=== PATIENT | female | born 2000 | race African-American/Black ===

== ENCOUNTER 2022-01-26 07:06 | Inpatient (IN) | payer OTHER ==
[~2022-01-26] VITALS: Ht 152.4 cm; Wt 78.0 kg
[~2022-01-26 07:06] MED LIST: NO KNOWN ALLERGIES
[2022-01-26] MEDS ORDERED: NALOXONE HCL 0.4 MG/ML 1ML VIAL IM PRN (07:45)
[2022-01-26] MEDS ORDERED: BUTORPHANOL TARTRATE 2 MG/ML VIAL IV PRN ×2 (07:45→12:45)
[2022-01-26] MEDS ORDERED: MISOPROSTOL 100MCG TABLET VG SCH (07:45)
[2022-01-26] MEDS ORDERED: METHYLERGONOVINE MALEATE 0.2 MG/ML IM PRN (07:45)
[2022-01-26] MEDS ORDERED: RHO(D) IMMUNE GLOBULIN 300 MCG/SYR IM PRN ×2 (07:45→13:15)
[2022-01-26] MEDS ORDERED: CARBOPROST TROMETHAMINE 250 MCG/ML AMPUL IM PRN (07:45)
[2022-01-26] MEDS ORDERED: OXYTOCIN 30 UNITS/500ML NS PMX 500 ML IV SCH ×2 (07:45→13:15)
[2022-01-26] MEDS: LACTATED RINGERS 1,000 ML IV SCH ×2 (08:47→19:38)
[2022-01-26] MEDS ORDERED: MISOPROSTOL 100MCG TABLET VG PRN (09:00)
[2022-01-26] MEDS ORDERED: ONDANSETRON HCL 4MG/2ML INJ ONE (09:37)
[2022-01-26] MEDS ORDERED: FENTANYL CITRATE/PF 50MCG/ML 2ML VIAL ONE (09:37)
[2022-01-26] MEDS ORDERED: EPHEDRINE SULFATE 50MG/ML VIAL ONE (09:37)
[2022-01-26] MEDS ORDERED: PHENYLEPHRINE HCL 10 MG/ML 1ML (IV VIAL) IV ONE (09:37)
[2022-01-26] MEDS ORDERED: OXYTOCIN 10 UNITS/ML 1ML ONE ×2 (09:37→12:54)
[2022-01-26] MEDS ORDERED: CLINDAMYCIN 900 MG PREMIX 50 ML IV ONE (09:37)
[2022-01-26] MEDS ORDERED: MORPHINE SULFATE/PF 1MG/ML 10ML AMP ONE (09:37)
[2022-01-26 09:47] LABS: BASOPHILS % 0.2 % (0.0-2.0); EOSINOPHILS % 1.1 % (0.0-5.0); HEMATOCRIT. 37.8 % (36.0-48.0); HEMOGLOBIN. 12.9 g/dL (12.0-16.0); LYMPHOCYTES % 17.9 % (20.0-50.0); MEAN CORPUSCULAR HEMOGLOBIN 32.9 pg (28.0-32.0); MEAN CORPUSCULAR VOLUME 96.6 fL (81.0-99.0); MEAN PLATELET VOLUME 11.9 fl (7.4-10.4); MONOCYTES % 5.9 % (2.0-8.0); NEUTROPHILS % 74.9 % (40.0-76.0); PLATELET 109 x1000/uL (130-400); RED BLOOD CELL COUNT 3.91 mill/uL (4.2-5.4)
[2022-01-26 09:48] LABS: CLARITY URINE CLEAR (CLEAR); COLOR URINE YELLOW (YELLOW); KETONES URINE NEGATIVE (NEGATIVE); LEUKOCYTE ESTERASE URINE 1+ (NEGATIVE); NITRITE URINE NEGATIVE (NEGATIVE); OCCULT BLOOD URINE NEGATIVE (NEGATIVE); PROTEIN URINE NEGATIVE (NEGATIVE); UROBILINOGEN URINE 0.2 E.U./dL (0.2-1.0)
[2022-01-26 09:53] LABS: INR 0.9; PARTIAL THROMBOPLASTIN TIME 30.3 sec (23.4-31.0); PROTHROMBIN TIME 9.9 sec (9.6-11.0)
[2022-01-26 10:09] LABS: CHLORIDE 107 mEq/L (98-107)
[2022-01-26 10:25] LABS: *AMPHETAMINES SCREEN URINE NEGATIVE (NEGATIVE); *BARBITURATES SCREEN URINE NEGATIVE (NEGATIVE); *BENZODIAZEPINES SCREEN URINE NEGATIVE (NEGATIVE); *COCAINE SCREEN URINE NEGATIVE (NEGATIVE); CANNABINOID URINE SCREEN NEGATIVE (NEGATIVE); METHADONE URINE SCREEN NEGATIVE (NEGATIVE); OPIATES URINE SCREEN NEGATIVE (NEGATIVE); PHENCYCLIDINE URINE SCREEN NEGATIVE (NEGATIVE)
[2022-01-26] MEDS ORDERED: DIPHENHYDRAMINE 50MG/ML VIAL ONE (12:21)
[2022-01-26] MEDS ORDERED: KETOROLAC 60MG/2ML VIAL IM ONE (12:29)
[2022-01-26] MEDS ORDERED: DIPHENHYDRAMINE 50MG/ML VIAL IV PRN (12:45)
[2022-01-26] MEDS ORDERED: NALOXONE HCL 0.4 MG/ML 1ML VIAL IV PRN (12:45)
[2022-01-26] MEDS ORDERED: HYDROCODONE/ACETAMINOPHEN 5/325MG TABLET PO PRN (13:15)
[2022-01-26] MEDS ORDERED: ONDANSETRON HCL 4MG/2ML INJ IV PRN (13:15)
[2022-01-26] MEDS ORDERED: LANOLIN OINT 7GM TUBE TOP PRN (13:15)
[2022-01-26] MEDS ORDERED: IBUPROFEN 400MG TABLET PO PRN (13:15)
[2022-01-26] MEDS ORDERED: NALOXONE HCL 0.4MG/ML VIAL IV PRN (13:30)
[2022-01-26 15:35] VITALS: BP 104/61
[2022-01-26 16:20] VITALS: BP 102/41
[2022-01-26] MEDS: KETOROLAC 30MG/ML VIAL IV SCH (18:27)
[2022-01-26 20:00] VITALS: BP 96/57
[2022-01-26] MEDS ORDERED: DIPHENHYDRAMINE 25MG CAPSULE PO PRN (21:00)
[2022-01-27 00:15] VITALS: BP 96/51
[2022-01-27] MEDS: KETOROLAC 30MG/ML VIAL IV SCH ×2 (00:17→05:04)
[2022-01-27] MEDS: LACTATED RINGERS 1,000 ML IV SCH (03:27)
[2022-01-27 03:45] VITALS: BP 96/58
[2022-01-27 06:37] LABS: HEMATOCRIT. 30.4 % (36.0-48.0); HEMOGLOBIN. 10.6 g/dL (12.0-16.0); MEAN CORPUSCULAR VOLUME 94.8 fL (81.0-99.0); MEAN PLATELET VOLUME 11.1 fl (7.4-10.4); PLATELET 99 x1000/uL (130-400); RED CELL DISTRIBUTION WIDTH 12.2 % (11.6-14.6)
[2022-01-27 08:00] VITALS: BP 93/40
[2022-01-27] MEDS: HYDROCODONE/ACETAMINOPHEN 5/325MG TABLET PO PRN ×3 (12:15→21:51)
[2022-01-27 16:30] VITALS: BP 113/65
[2022-01-27 16:40] LABS: PLATELET ESTIMATE DECREASED
[2022-01-27] MEDS: PRENATAL VIT/FE FUMARATE/FA TABLET PO SCH (16:45)
[2022-01-27] MEDS ORDERED: ACETAMINOPHEN 325MG TABLET PO PRN (18:00)
[2022-01-27 20:00] VITALS: BP 106/56
[2022-01-27] MEDS ORDERED: GENTAMICIN 120MG PREMIX 100 ML IV NR (20:00)
[2022-01-27 20:32] LABS: HEMATOCRIT. 35.8 % (36.0-48.0); MEAN CORPUSCULAR HEMOGLOBIN 32.7 pg (28.0-32.0); MEAN CORPUSCULAR VOLUME 97.2 fL (81.0-99.0); MEAN PLATELET VOLUME 11.3 fl (7.4-10.4); PLATELET 115 x1000/uL (130-400); RED BLOOD CELL COUNT 3.68 mill/uL (4.2-5.4); RED CELL DISTRIBUTION WIDTH 12.2 % (11.6-14.6)
[2022-01-27] MEDS: DOCUSATE SODIUM 100MG CAPSULE PO SCH (20:55)
[2022-01-27] MEDS: IBUPROFEN 800MG TABLET PO SCH (20:55)
[2022-01-27 22:15] LABS: CLARITY URINE CLEAR (CLEAR); COLOR URINE YELLOW (YELLOW); KETONES URINE NEGATIVE (NEGATIVE); LEUKOCYTE ESTERASE URINE TRACE (NEGATIVE); NITRITE URINE NEGATIVE (NEGATIVE); OCCULT BLOOD URINE 2+ (NEGATIVE); PROTEIN URINE NEGATIVE (NEGATIVE); SPECIFIC GRAVITY URINE 1.008 (1.005-1.030)
[2022-01-27] MEDS: AMPICILLIN 500 MG in SODIUM CHLORIDE 0.9% 50 ML IV SCH (22:44)
[2022-01-27 23:40] VITALS: BP 104/50
[2022-01-28 01:06] LABS: PLATELET ESTIMATE DECREASED
[2022-01-28] MEDS: HYDROCODONE/ACETAMINOPHEN 5/325MG TABLET PO PRN (03:24)
[2022-01-28 03:30] VITALS: BP 106/63
[2022-01-28] MEDS: AMPICILLIN 500 MG in SODIUM CHLORIDE 0.9% 50 ML IV SCH (04:01)
[2022-01-28] MEDS: GENTAMICIN 80MG PREMIX 100 ML IV SCH ×3 (05:16→20:00)
[2022-01-28] MEDS: IBUPROFEN 800MG TABLET PO SCH ×3 (05:50→22:44)
[2022-01-28 06:20] LABS: BASOPHILS % 0.2 % (0.0-2.0); EOSINOPHILS % 0.6 % (0.0-5.0); HEMATOCRIT. 31.7 % (36.0-48.0); HEMOGLOBIN. 10.8 g/dL (12.0-16.0); LYMPHOCYTES % 4.5 % (20.0-50.0); MEAN CORPUSCULAR HEMOGLOBIN 32.8 pg (28.0-32.0); MEAN CORPUSCULAR VOLUME 96.8 fL (81.0-99.0); MONOCYTES % 5.7 % (2.0-8.0); PLATELET 106 x1000/uL (130-400); RED BLOOD CELL COUNT 3.28 mill/uL (4.2-5.4); RED CELL DISTRIBUTION WIDTH 11.8 % (11.6-14.6)
[2022-01-28 07:30] VITALS: BP 105/60
[2022-01-28] MEDS: PRENATAL VIT/FE FUMARATE/FA TABLET PO SCH (08:15)
[2022-01-28] MEDS ORDERED: KETOROLAC 30MG/ML VIAL IV ONE (08:30)
[2022-01-28] MEDS: CLINDAMYCIN 900 MG PREMIX 50 ML IV SCH ×2 (10:09→17:36)
[2022-01-28] MEDS: OXYCODONE HCL/ACETAMINOPHEN 5/325MG TABLET PO SCH ×2 (12:13→18:32)
[2022-01-28 15:57] VITALS: BP 112/66
[2022-01-28 20:00] VITALS: BP 98/54
[2022-01-28] MEDS: DOCUSATE SODIUM 100MG CAPSULE PO SCH (20:00)
[2022-01-29] MEDS: OXYCODONE HCL/ACETAMINOPHEN 5/325MG TABLET PO SCH ×2 (01:06→06:56)
[2022-01-29] MEDS: CLINDAMYCIN 900 MG PREMIX 50 ML IV SCH (01:34)
[2022-01-29 04:00] VITALS: BP 102/52
[2022-01-29] MEDS: IBUPROFEN 800MG TABLET PO SCH (04:48)
[2022-01-29 07:40] VITALS: BP 95/45
[2022-01-29 07:50] LABS: BASOPHILS % 0.3 % (0.0-2.0); EOSINOPHILS % 1.8 % (0.0-5.0); HEMATOCRIT. 34.3 % (36.0-48.0); HEMOGLOBIN. 11.5 g/dL (12.0-16.0); LYMPHOCYTES % 14.2 % (20.0-50.0); MEAN CORPUSCULAR HEMOGLOBIN 32.5 pg (28.0-32.0); MEAN CORPUSCULAR VOLUME 96.7 fL (81.0-99.0); MEAN PLATELET VOLUME 11.5 fl (7.4-10.4); MONOCYTES % 4.8 % (2.0-8.0); NEUTROPHILS % 78.9 % (40.0-76.0); PLATELET 124 x1000/uL (130-400); RED BLOOD CELL COUNT 3.54 mill/uL (4.2-5.4); RED CELL DISTRIBUTION WIDTH 12.2 % (11.6-14.6)
[2022-01-29] MEDS: PRENATAL VIT/FE FUMARATE/FA TABLET PO SCH (08:26)
[2022-01-29 08:34] LABS: CHLORIDE 107 mEq/L (98-107)
[2022-01-29 11:58] LABS: GENTAMICIN RANDOM < 0.2 ug/mL
== END 2022-01-29 11:35 | disposition home or self-care (01) | DRG 540 ==
LOC: 8 EST LDRP 07:06 → OBSVTOIN 12:23 → 8EST 15:48
PROVIDERS: ADMIT Obstetrics & Gynecology; ATTEND Obstetrics & Gynecology
PROC: 10D00Z1 Extraction of Products of Conception, Low, Open Approach (ICD-10-PCS; principal; 2022-01-26)
PROC: 3E0234Z Introduction of Serum, Toxoid and Vaccine into Muscle, Percutaneous Approach (ICD-10-PCS; 2022-01-26)
DX: O34.211 Maternal care for low transverse scar from previous cesarean delivery (principal); J45.909 Unspecified asthma, uncomplicated; O99.52 Diseases of the respiratory system complicating childbirth; O99.02 Anemia complicating childbirth; O26.893 Other specified pregnancy related conditions, third trimester; Z20.822 Contact with and (suspected) exposure to COVID-19; Z3A.38 38 weeks gestation of pregnancy; Z37.0 Single live birth; Z67.41 Type O blood, Rh negative
CPT/HCPCS: 36415; 76805; 76818; 80048; 80053; 80170; 80305; 81003; 85025; 86592; 86703; 86762; 86850; 86886; 86900; 87070; 87340; 87426; 88307; 90384; G0378; J0290; J1200; J1580; J1885; J2274; J2370; J2405; J3010; J3490; J7120; A4315; J2590; J2791

== ENCOUNTER 2022-02-02 21:43 | Inpatient (IN) | payer OTHER ==
[~2022-02-02] VITALS: Ht 152.4 cm; Wt 72.6 kg
[2022-02-03] VITALS (7 sets, daily range): BP systolic 100–117; BP diastolic 56–68
[2022-02-03] MEDS ORDERED: MORPHINE SULFATE 4 MG/ML CPJ (NOT FOR IM USE) IV STA (01:59)
[2022-02-03] MEDS ORDERED: ONDANSETRON HCL 4MG/2ML INJ IV STA (01:59)
[2022-02-03] MEDS ORDERED: PIPERACILLIN/TAZ 3.375G PREMIX 50 ML IV ONE (02:00)
[2022-02-03] MEDS ORDERED: SODIUM CHLORIDE 0.9% 1,000 ML IV ONE ×2 (02:00)
[2022-02-03 03:08] LABS: HEMATOCRIT. 40.6 % (36.0-48.0); HEMOGLOBIN. 13.2 g/dL (12.0-16.0); MEAN CORPUSCULAR HEMOGLOBIN 31.2 pg (28.0-32.0); MEAN CORPUSCULAR VOLUME 96.3 fL (81.0-99.0); MEAN PLATELET VOLUME 10.7 fl (7.4-10.4); PLATELET 250 x1000/uL (130-400); RED BLOOD CELL COUNT 4.22 mill/uL (4.2-5.4); RED CELL DISTRIBUTION WIDTH 12.6 % (11.6-14.6)
[2022-02-03 03:15] LABS: CHLORIDE 104 mEq/L (98-107)
[2022-02-03 03:25] LABS: B-HCG QUANTITATIVE 29 mIU/mL (<3)
[2022-02-03 03:36] LABS: PLATELET ESTIMATE NORMAL
[2022-02-03] MEDS ORDERED: MORPHINE SULFATE 4 MG/ML CPJ (NOT FOR IM USE) IV NR (04:00)
[2022-02-03] MEDS ORDERED: ONDANSETRON HCL 4MG/2ML INJ IV NR (04:00)
[2022-02-03] MEDS ORDERED: IOHEXOL-300 100 ML BOTTLE ONE (04:49)
[2022-02-03] MEDS ORDERED: VANCOMYCIN 1G PREMIX 200 ML IV ONE (05:00)
[2022-02-03 05:50] LABS: CLARITY URINE TURBID (CLEAR); COLOR URINE ORANGE (YELLOW); KETONES URINE TRACE (NEGATIVE); LEUKOCYTE ESTERASE URINE 2+ (NEGATIVE); NITRITE URINE POSITIVE (NEGATIVE); OCCULT BLOOD URINE 3+ (NEGATIVE); PROTEIN URINE 3+ (NEGATIVE); SPECIFIC GRAVITY URINE 1.027 (1.005-1.030)
[2022-02-03] MEDS: HYDROCODONE/ACETAMINOPHEN 5/325MG TABLET PO PRN ×2 (12:13→19:31)
[2022-02-03] MEDS: DEXT 5%/0.45% NACL 1000ML 1,000 ML IV SCH ×2 (12:13→23:01)
[2022-02-03] MEDS ORDERED: PIPERACILLIN/TAZOBACTAM 3.375 G in DEXTROSE 5% WATER 50 ML IV SCH (13:00)
[2022-02-03] MEDS: CEFEPIME 2,000 MG in DEXT 5% WATER 100 ML IV SCH (18:06)
[2022-02-04] VITALS (10 sets, daily range): BP systolic 94–119; BP diastolic 44–83
[2022-02-04] MEDS ORDERED: VANCOMYCIN 750MG PREMIX 150 ML IV SCH
[2022-02-04] MEDS: HYDROCODONE/ACETAMINOPHEN 5/325MG TABLET PO PRN ×2 (00:23→05:41)
[2022-02-04] MEDS: CEFEPIME 2,000 MG in DEXT 5% WATER 100 ML IV SCH ×2 (05:18→17:26)
[2022-02-04 06:21] LABS: HEMATOCRIT. 32.8 % (36.0-48.0); MEAN CORPUSCULAR HEMOGLOBIN 31.9 pg (28.0-32.0); MEAN CORPUSCULAR VOLUME 95.3 fL (81.0-99.0); MEAN PLATELET VOLUME 10.7 fl (7.4-10.4); PLATELET 241 x1000/uL (130-400); RED BLOOD CELL COUNT 3.44 mill/uL (4.2-5.4); RED CELL DISTRIBUTION WIDTH 12.7 % (11.6-14.6)
[2022-02-04 08:29] LABS: CHLORIDE 100 mEq/L (98-107)
[2022-02-04] MEDS ORDERED: POTASSIUM CHLORIDE 20MEQ TABLET SR PO NR (09:00)
[2022-02-04] MEDS ORDERED: DOCUSATE SODIUM 100MG CAPSULE PO NR (11:00)
[2022-02-04 11:34] LABS: PLATELET ESTIMATE NORMAL
[2022-02-04] MEDS: VANCOMYCIN 750MG PREMIX 150 ML IV SCH (12:09)
[2022-02-04] MEDS: DEXT 5%/0.45% NACL 1000ML 1,000 ML IV SCH (12:12)
[2022-02-04] MEDS: KETOROLAC 30MG/ML VIAL IV PRN (12:33)
[2022-02-04] MEDS: DOCUSATE SODIUM 100MG CAPSULE PO SCH (17:26)
[2022-02-05] VITALS (9 sets, daily range): BP systolic 103–141; BP diastolic 58–81
[2022-02-05] MEDS: DEXT 5%/0.45% NACL 1000ML 1,000 ML IV SCH ×2 (02:00→20:24)
[2022-02-05] MEDS: CEFEPIME 2,000 MG in DEXT 5% WATER 100 ML IV SCH ×2 (04:17→18:19)
[2022-02-05] MEDS: KETOROLAC 30MG/ML VIAL IV PRN ×3 (04:18→15:53)
[2022-02-05] MEDS: VANCOMYCIN 750MG PREMIX 150 ML IV SCH (04:18)
[2022-02-05 05:41] LABS: HEMATOCRIT. 31.6 % (36.0-48.0); HEMOGLOBIN. 10.4 g/dL (12.0-16.0); MEAN CORPUSCULAR HEMOGLOBIN 31.5 pg (28.0-32.0); MEAN CORPUSCULAR VOLUME 95.5 fL (81.0-99.0); MEAN PLATELET VOLUME 10.1 fl (7.4-10.4); PLATELET 259 x1000/uL (130-400); RED CELL DISTRIBUTION WIDTH 12.6 % (11.6-14.6)
[2022-02-05 10:11] LABS: CHLORIDE 105 mEq/L (98-107)
[2022-02-05] MEDS: DOCUSATE SODIUM 100MG CAPSULE PO SCH ×2 (10:25→18:19)
[2022-02-05] MEDS: VANCOMYCIN 1G PREMIX 200 ML IV SCH ×2 (13:19→21:26)
[2022-02-05 18:47] LABS: PLATELET ESTIMATE NORMAL
[2022-02-05] MEDS ORDERED: POTASSIUM CHLORIDE 20MEQ TABLET SR PO SCH (19:30)
[2022-02-06] VITALS (10 sets, daily range): BP systolic 96–125; BP diastolic 57–78
[2022-02-06] MEDS: KETOROLAC 30MG/ML VIAL IV PRN ×3 (00:07→17:21)
[2022-02-06 03:35] LABS: CHLORIDE 108 mEq/L (98-107)
[2022-02-06 03:57] LABS: HEMATOCRIT. 30.7 % (36.0-48.0); HEMOGLOBIN. 10.2 g/dL (12.0-16.0); MEAN CORPUSCULAR HEMOGLOBIN 31.8 pg (28.0-32.0); MEAN CORPUSCULAR VOLUME 95.5 fL (81.0-99.0); MEAN PLATELET VOLUME 10.2 fl (7.4-10.4); PLATELET 273 x1000/uL (130-400); RED BLOOD CELL COUNT 3.22 mill/uL (4.2-5.4); RED CELL DISTRIBUTION WIDTH 12.4 % (11.6-14.6)
[2022-02-06] MEDS: CEFEPIME 2,000 MG in DEXT 5% WATER 100 ML IV SCH ×2 (04:35→17:03)
[2022-02-06 06:01] LABS: PLATELET ESTIMATE DECREASED
[2022-02-06] MEDS ORDERED: POTASSIUM CHLORIDE 20MEQ TABLET SR PO NR (08:30)
[2022-02-06] MEDS: DOCUSATE SODIUM 100MG CAPSULE PO SCH ×2 (09:00→17:00)
[2022-02-06] MEDS ORDERED: AZITHROMYCIN 500 MG TABLET PO NR (10:30)
[2022-02-06] MEDS: DEXT 5%/0.45% NACL 1000ML 1,000 ML IV SCH (11:08)
[2022-02-07] VITALS: BP 98/60
[2022-02-07] MEDS: ONDANSETRON HCL 4MG/2ML INJ IV PRN ×4 (03:27→20:26)
[2022-02-07] MEDS: KETOROLAC 30MG/ML VIAL IV PRN (03:34)
[2022-02-07 04:00] VITALS: BP 124/65
[2022-02-07] MEDS: CEFEPIME 2,000 MG in DEXT 5% WATER 100 ML IV SCH ×2 (05:15→17:38)
[2022-02-07 07:26] LABS: HEMATOCRIT. 34.4 % (36.0-48.0); HEMOGLOBIN. 11.2 g/dL (12.0-16.0); MEAN CORPUSCULAR HEMOGLOBIN 31.4 pg (28.0-32.0); MEAN CORPUSCULAR VOLUME 95.9 fL (81.0-99.0); MEAN PLATELET VOLUME 10.7 fl (7.4-10.4); PLATELET 356 x1000/uL (130-400); RED BLOOD CELL COUNT 3.58 mill/uL (4.2-5.4); RED CELL DISTRIBUTION WIDTH 12.7 % (11.6-14.6)
[2022-02-07 08:00] VITALS: BP 99/58
[2022-02-07] MEDS: AZITHROMYCIN 500 MG TABLET PO SCH (08:50)
[2022-02-07] MEDS: DOCUSATE SODIUM 100MG CAPSULE PO SCH ×3 (08:50→17:00)
[2022-02-07 09:16] LABS: CHLORIDE 110 mEq/L (98-107)
[2022-02-07 12:00] VITALS: BP 101/60
[2022-02-07 13:32] LABS: PLATELET ESTIMATE NORMAL
[2022-02-07 16:00] VITALS: BP 115/69
[2022-02-07 17:36] LABS: HCG SCREEN NEGATIVE
[2022-02-07 20:00] VITALS: BP 105/65
[2022-02-08] VITALS: BP 109/80
[2022-02-08] MEDS: ONDANSETRON HCL 4MG/2ML INJ IV PRN (01:40)
[2022-02-08] MEDS: KETOROLAC 30MG/ML VIAL IV PRN ×2 (01:53→19:39)
[2022-02-08 04:00] VITALS: BP 100/77
[2022-02-08] MEDS: CEFEPIME 2,000 MG in DEXT 5% WATER 100 ML IV SCH ×2 (05:33→18:05)
[2022-02-08 08:00] VITALS: BP 102/62
[2022-02-08] MEDS: DOCUSATE SODIUM 100MG CAPSULE PO SCH ×2 (08:26→17:00)
[2022-02-08] MEDS: AZITHROMYCIN 500 MG TABLET PO SCH (08:29)
[2022-02-08 12:00] VITALS: BP 101/55
[2022-02-08 15:33] LABS: INR 1.1
[2022-02-08 16:00] VITALS: BP 105/58
[2022-02-08 20:00] VITALS: BP 103/60
[2022-02-09] VITALS: BP 99/55
[2022-02-09 04:00] VITALS: BP 103/53
[2022-02-09] MEDS: CEFEPIME 2,000 MG in DEXT 5% WATER 100 ML IV SCH ×2 (05:18→17:38)
[2022-02-09 08:00] VITALS: BP 102/57
[2022-02-09] MEDS: AZITHROMYCIN 500 MG TABLET PO SCH (08:18)
[2022-02-09] MEDS ORDERED: LIDOCAINE HCL 1% 10 MG/ML 10ML VIAL ONE (08:20)
[2022-02-09] MEDS ORDERED: SODIUM BICARBONATE 4% (2.4MEQ) 5ML VIAL IV ONE (08:20)
[2022-02-09] MEDS: DOCUSATE SODIUM 100MG CAPSULE PO SCH ×2 (08:52→17:00)
[2022-02-09 12:00] VITALS: BP 104/61
[2022-02-09 14:15] LABS: HEPATITIS B SURFACE ANTIGEN NEGATIVE
[2022-02-09 16:00] VITALS: BP 107/62
[2022-02-09 16:56] LABS: HEMATOCRIT. 30.9 % (36.0-48.0); MEAN CORPUSCULAR HEMOGLOBIN 31.7 pg (28.0-32.0); MEAN CORPUSCULAR VOLUME 97.8 fL (81.0-99.0); MEAN PLATELET VOLUME 10.8 fl (7.4-10.4); PLATELET 498 x1000/uL (130-400); RED BLOOD CELL COUNT 3.16 mill/uL (4.2-5.4); RED CELL DISTRIBUTION WIDTH 12.8 % (11.6-14.6)
[2022-02-09 17:03] LABS: INR 1.1; PROTHROMBIN TIME 11.7 sec (9.6-11.0)
[2022-02-09 17:07] LABS: CHLORIDE 106 mEq/L (98-107)
[2022-02-09] MEDS: KETOROLAC 30MG/ML VIAL IV PRN (17:40)
[2022-02-09] MEDS ORDERED: POTASSIUM CHLORIDE 20MEQ TABLET SR PO NR (19:00)
[2022-02-09 19:42] LABS: PLATELET ESTIMATE INCREASED
[2022-02-09 20:00] VITALS: BP 114/69
[2022-02-10] VITALS: BP 101/53
[2022-02-10] MEDS: KETOROLAC 30MG/ML VIAL IV PRN ×2 (02:10→17:56)
[2022-02-10 04:00] VITALS: BP 98/59
[2022-02-10] MEDS: CEFEPIME 2,000 MG in DEXT 5% WATER 100 ML IV SCH ×3 (05:55→23:38)
[2022-02-10] MEDS: ACETAMINOPHEN 325MG TABLET PO PRN ×2 (06:59→23:38)
[2022-02-10 08:00] VITALS: BP 100/60
[2022-02-10] MEDS: DOCUSATE SODIUM 100MG CAPSULE PO SCH ×2 (08:41→17:00)
[2022-02-10] MEDS: AZITHROMYCIN 500 MG TABLET PO SCH (08:41)
[2022-02-10 12:00] VITALS: BP 102/61
[2022-02-10 15:58] VITALS: BP 111/64
[2022-02-10 16:01] LABS: HEMATOCRIT. 31.4 % (36.0-48.0); MEAN CORPUSCULAR HEMOGLOBIN 31.2 pg (28.0-32.0); MEAN CORPUSCULAR VOLUME 98.1 fL (81.0-99.0); PLATELET 524 x1000/uL (130-400); RED BLOOD CELL COUNT 3.21 mill/uL (4.2-5.4); RED CELL DISTRIBUTION WIDTH 12.9 % (11.6-14.6)
[2022-02-10 16:20] LABS: CHLORIDE 104 mEq/L (98-107)
[2022-02-10 17:58] LABS: PLATELET ESTIMATE INCREASED
[2022-02-10 20:00] VITALS: BP 98/53
[2022-02-11] VITALS (7 sets, daily range): BP systolic 93–127; BP diastolic 48–63
[2022-02-11] MEDS: KETOROLAC 30MG/ML VIAL IV PRN ×2 (01:44→06:45)
[2022-02-11 06:43] LABS: CHLORIDE 108 mEq/L (98-107)
[2022-02-11 06:54] LABS: HEMATOCRIT. 27.8 % (36.0-48.0); HEMOGLOBIN. 9.2 g/dL (12.0-16.0); MEAN CORPUSCULAR VOLUME 96.8 fL (81.0-99.0); MEAN PLATELET VOLUME 10.5 fl (7.4-10.4); PLATELET 524 x1000/uL (130-400); RED BLOOD CELL COUNT 2.87 mill/uL (4.2-5.4); RED CELL DISTRIBUTION WIDTH 12.5 % (11.6-14.6)
[2022-02-11] MEDS: DOCUSATE SODIUM 100MG CAPSULE PO SCH ×2 (09:00→17:00)
[2022-02-11 09:06] LABS: ANTI-NUCLEAR ANTIBODIES DIRECT Negative (Negative)
[2022-02-11] MEDS: CEFEPIME 2,000 MG in DEXT 5% WATER 100 ML IV SCH ×2 (09:13→16:22)
[2022-02-11] MEDS: ACETAMINOPHEN 325MG TABLET PO PRN (18:12)
[2022-02-11 19:11] LABS: ANTI-MYELOPEROXIDASE AB < 0.2 units (0.0-0.9); ANTI-PROTEINASE 3 ABS < 0.2 units (0.0-0.9)
[2022-02-12] VITALS: BP 111/63
[2022-02-12] MEDS: CEFEPIME 2,000 MG in DEXT 5% WATER 100 ML IV SCH ×3 (02:14→16:34)
[2022-02-12 03:06] LABS: PLATELET ESTIMATE INCREASED
[2022-02-12 04:00] VITALS: BP 100/53
[2022-02-12 04:09] LABS: EBV NUCLEAR IGG 43.2 U/mL (0.0-17.9); EBV VIRAL CAPSID AB IGM <36.0 U/mL (0.0-35.9)
[2022-02-12] MEDS: KETOROLAC 30MG/ML VIAL IV PRN ×2 (04:14→15:57)
[2022-02-12 07:19] LABS: HEMOGLOBIN. 9.3 g/dL (12.0-16.0); MEAN CORPUSCULAR HEMOGLOBIN 31.8 pg (28.0-32.0); MEAN CORPUSCULAR VOLUME 96.3 fL (81.0-99.0); MEAN PLATELET VOLUME 10.8 fl (7.4-10.4); PLATELET 534 x1000/uL (130-400); RED BLOOD CELL COUNT 2.91 mill/uL (4.2-5.4); RED CELL DISTRIBUTION WIDTH 12.6 % (11.6-14.6)
[2022-02-12 08:00] VITALS: BP 107/62
[2022-02-12] MEDS: DOCUSATE SODIUM 100MG CAPSULE PO SCH ×2 (09:00→17:00)
[2022-02-12 09:26] LABS: CHLORIDE 107 mEq/L (98-107)
[2022-02-12 13:06] LABS: ATYPICAL P-ANCA <1:20 titer (Neg:<1:20); CYTOPLASMIC C-ANCA <1:20 titer (Neg:<1:20); PERINUCLEAR P-ANCA <1:20 titer (Neg:<1:20)
[2022-02-12 13:38] LABS: PLATELET ESTIMATE INCREASED
[2022-02-12 15:55] VITALS: BP 104/55
[2022-02-13] VITALS: BP 105/56
[2022-02-13] MEDS: CEFEPIME 2,000 MG in DEXT 5% WATER 100 ML IV SCH ×3 (00:51→16:50)
[2022-02-13] MEDS: KETOROLAC 30MG/ML VIAL IV PRN ×3 (02:02→18:25)
[2022-02-13 04:00] VITALS: BP 97/54
[2022-02-13 06:48] LABS: HEMOGLOBIN. 8.9 g/dL (12.0-16.0); MEAN CORPUSCULAR VOLUME 96.8 fL (81.0-99.0); MEAN PLATELET VOLUME 10.9 fl (7.4-10.4); PLATELET 502 x1000/uL (130-400); RED BLOOD CELL COUNT 2.79 mill/uL (4.2-5.4); RED CELL DISTRIBUTION WIDTH 12.6 % (11.6-14.6)
[2022-02-13 08:00] VITALS: BP 111/60
[2022-02-13] MEDS: DOCUSATE SODIUM 100MG CAPSULE PO SCH ×2 (09:00→16:50)
[2022-02-13 12:00] VITALS: BP 101/66
[2022-02-13 16:00] VITALS: BP 97/60
[2022-02-13 20:00] VITALS: BP 105/60
[2022-02-13 22:50] LABS: PLATELET ESTIMATE INCREASED
[2022-02-14] VITALS: BP 105/63
[2022-02-14] MEDS: CEFEPIME 2,000 MG in DEXT 5% WATER 100 ML IV SCH ×3 (00:28→18:12)
[2022-02-14] MEDS: KETOROLAC 30MG/ML VIAL IV PRN (00:33)
[2022-02-14 04:00] VITALS: BP 112/66
[2022-02-14 07:54] LABS: BASOPHILS % 1.2 % (0.0-2.0); EOSINOPHILS % 2.7 % (0.0-5.0); HEMATOCRIT. 25.9 % (36.0-48.0); HEMOGLOBIN. 8.6 g/dL (12.0-16.0); LYMPHOCYTES % 12.8 % (20.0-50.0); MEAN CORPUSCULAR HEMOGLOBIN 31.8 pg (28.0-32.0); MEAN CORPUSCULAR VOLUME 96.2 fL (81.0-99.0); MEAN PLATELET VOLUME 10.6 fl (7.4-10.4); MONOCYTES % 8.1 % (2.0-8.0); NEUTROPHILS % 75.2 % (40.0-76.0); PLATELET 469 x1000/uL (130-400); RED CELL DISTRIBUTION WIDTH 12.7 % (11.6-14.6)
[2022-02-14 08:00] VITALS: BP 117/71
[2022-02-14] MEDS: DOCUSATE SODIUM 100MG CAPSULE PO SCH ×2 (08:45→17:00)
[2022-02-14 12:00] VITALS: BP 112/69
[2022-02-14] MEDS ORDERED: DIATR MEGLU/DIATRIZOATE SOLN 30ML PO NR (13:00)
[2022-02-14] MEDS: ACETAMINOPHEN 325MG TABLET PO PRN ×2 (14:37→21:41)
[2022-02-14] MEDS ORDERED: DIATR MEGLU/DIATRIZOATE SOLN 120ML ONE (15:00)
[2022-02-14 16:00] VITALS: BP 108/63
[2022-02-14 18:15] LABS: CHLORIDE 108 mEq/L (98-107)
[2022-02-14 20:00] VITALS: BP 105/64
[2022-02-15] VITALS: BP 96/54
[2022-02-15] MEDS: CEFEPIME 2,000 MG in DEXT 5% WATER 100 ML IV SCH ×2 (00:28→09:13)
[2022-02-15 04:00] VITALS: BP 105/55
[2022-02-15] MEDS: ACETAMINOPHEN 325MG TABLET PO PRN (06:05)
[2022-02-15 08:00] VITALS: BP 99/45
[2022-02-15 08:07] LABS: EOSINOPHILS % 3.2 % (0.0-5.0); HEMOGLOBIN. 8.9 g/dL (12.0-16.0); LYMPHOCYTES % 14.7 % (20.0-50.0); MEAN CORPUSCULAR VOLUME 96.7 fL (81.0-99.0); MEAN PLATELET VOLUME 10.6 fl (7.4-10.4); MONOCYTES % 7.7 % (2.0-8.0); NEUTROPHILS % 73.4 % (40.0-76.0); PLATELET 456 x1000/uL (130-400); RED BLOOD CELL COUNT 2.79 mill/uL (4.2-5.4); RED CELL DISTRIBUTION WIDTH 12.5 % (11.6-14.6)
[2022-02-15] MEDS: DOCUSATE SODIUM 100MG CAPSULE PO SCH (09:00)
[2022-02-15] MEDS ORDERED: DOCU250C14 MT (12:39)
[2022-02-15] MEDS ORDERED: CEFD300C3 MT (12:39)
[2022-02-18 13:07] LABS: DIRECTOR REVIEW Comment: (.); FISH RESULTS Comment: (.)
== END 2022-02-15 13:05 | disposition home or self-care (01) | DRG 561 ==
LOC: ER 21:43 → 5EST 02-03 04:54 → EDBEDREQ 02-03 05:00 → EDBEDREQTM 02-03 05:00 → EDBEDREQSVC 02-03 05:00 → CANRESERV 02-03 10:37 → ENRESERV 02-03 10:37 → 8WST 02-06 14:00 → 6EST 02-13 10:15
PROVIDERS: ADMIT Internal Medicine; ATTEND Internal Medicine
PROC: 0W9G3ZZ Drainage of Peritoneal Cavity, Percutaneous Approach (ICD-10-PCS; principal; 2022-02-09)
DX: O85 Puerperal sepsis (principal); N17.0 Acute kidney failure with tubular necrosis; R65.20 Severe sepsis without septic shock; E43 Unspecified severe protein-calorie malnutrition; J18.9 Pneumonia, unspecified organism; E88.09 Other disorders of plasma-protein metabolism, not elsewhere classified; E87.1 Hypo-osmolality and hyponatremia; R18.8 Other ascites; O90.89 Other complications of the puerperium, not elsewhere classified; O99.53 Diseases of the respiratory system complicating the puerperium; O99.63 Diseases of the digestive system complicating the puerperium; K92.9 Disease of digestive system, unspecified; O99.285 Endocrine, nutritional and metabolic diseases complicating the puerperium; Z20.822 Contact with and (suspected) exposure to COVID-19; J45.909 Unspecified asthma, uncomplicated; Z98.891 History of uterine scar from previous surgery; Z68.31 Body mass index [BMI] 31.0-31.9, adult; Z88.8 Allergy status to other drugs, medicaments and biological substances; Z82.5 Family history of asthma and other chronic lower respiratory diseases
CPT/HCPCS: 36415; 49083; 71045; 71250; 74176; 74177; 76705; 76856; 80048; 80053; 80202; 81003; 82105; 82150; 82378; 83520; 83605; 83615; 84145; 84155; 84702; 84703; 85025; 85379; 86038; 86256; 86664; 86665; 86705; 86709; 86803; 87340; 87426; 93970; 99285; G0378; J0692; J1885; J2270; J2405; J2543; J3370; J3490; J7030; J7060; Q9963; Q9967

== ENCOUNTER 2022-03-07 13:25 | Emergency (ER) | payer OTHER ==
[~2022-03-07] VITALS: Ht 152.4 cm; Wt 73.0 kg
[~2022-03-07 13:25] MED LIST changes: +CEFD300C3 MT; +DOCU250C14 MT; -NO KNOWN ALLERGIES
[2022-03-07 14:07] VITALS: BP 111/69
[2022-03-07] MEDS ORDERED: SODIUM CHLORIDE 0.9% 1000ML BAG (SEPSIS BOLUS) IV ONE (15:30)
[2022-03-07 16:13] LABS: BASOPHILS % 1.4 % (0.0-2.0); EOSINOPHILS % 1.2 % (0.0-5.0); HEMOGLOBIN. 12.3 g/dL (12.0-16.0); MEAN CORPUSCULAR HEMOGLOBIN 31.8 pg (28.0-32.0); MEAN CORPUSCULAR VOLUME 95.4 fL (81.0-99.0); MEAN PLATELET VOLUME 10.2 fl (7.4-10.4); MONOCYTES % 13.7 % (2.0-8.0); NEUTROPHILS % 56.7 % (40.0-76.0); PLATELET 203 x1000/uL (130-400); RED BLOOD CELL COUNT 3.88 mill/uL (4.2-5.4); RED CELL DISTRIBUTION WIDTH 12.4 % (11.6-14.6)
[2022-03-07 16:16] LABS: CHLORIDE 104 mEq/L (98-107)
[2022-03-07 16:19] LABS: HCG SCREEN NEGATIVE
[2022-03-07] MEDS ORDERED: LEVO750T68 MT (21:28)
[2022-03-07] MEDS ORDERED: IBUP-2029 MT (21:28)
[2022-03-07] MEDS ORDERED: ACETAMINOPHEN 325MG TABLET PO ONE (21:30)
[2022-03-07] MEDS ORDERED: LEVOFLOXACIN 250MG TABLET PO ONE (21:30)
== END 2022-03-07 21:50 | disposition home or self-care (01) ==
LOC: ER 13:25
DX: J18.9 Pneumonia, unspecified organism (principal); J45.909 Unspecified asthma, uncomplicated; Z98.890 Other specified postprocedural states; Z88.0 Allergy status to penicillin
CPT/HCPCS: 36415; 71045; 80053; 81025; 83605; 84703; 85025; 87040; 99284; J7030